=== PATIENT | male | born 1950 | race Caucasian/White ===

== ENCOUNTER 2018-03-30 12:01 | Emergency (ER) | payer OTHER, SELFPAY ==
[2018-03-30 12:03] VITALS: BP 191/106; PULSE 105; RESP 16; TEMP 36.9; O2SAT 99; BMI 34.4
[2018-03-30 12:12] VITALS: O2SAT 97
--- NOTE | 2018-03-30 12:44 | CT_ITS ---
STUDY: CT BRAIN WITHOUT CONTRAST REASON FOR EXAM: Male, 67 years old. History of fall with laceration to the posterior aspect of the skull. RADIATION DOSAGE (If Supplied By Facility): CTDIvol = ( 60.81 ) mGy, DLP = ( 1021.47 ) mGycm TECHNIQUE: Transaxial CT imaging of the brain was performed without administration of intravenous contrast material. Individualized dose optimization techniques were used for this CT. COMPARISON: None. FINDINGS: There is evidence of a scalp hematoma overlying the posterior parietal and occipital bones. There is a 6.8 mm x 8.6 mm calcified osteoma in the mid frontal bone. There is mild cerebral atrophy with widening of the extra-axial spaces and ventricular dilatation. There are areas of decreased attenuation within the white matter tracts of the supratentorial brain, consistent with microvascular disease changes. Normal basal ganglia and thalami. Normal brainstem. Normal cerebellum. There is no intracranial hemorrhage. There are no findings of an acute ischemic infarction. Atherosclerotic calcification of the cavernous portions of the internal carotid arteries bilaterally. Partial opacification of the right mastoid air cells. CT/Brain/Head without Contrast IMPRESSION: Chronic involutional changes of the brain. Skull hematoma overlying the posterior occipital parietal bones. Electronically Signed: Fernando Vasquez MD at 13:39 EST , Service support ,
--- NOTE | 2018-03-30 13:51 | ED.VISSUMM ---
- ER Visit Summary Date of Service: 03/30/18 Chief Complaint: Head injury History of Present Illness: The patient is a 67 M who states that earlier today slipped and fell on the ice striking the back of his head. This was work-related. No loss of consciousness. He is not on any blood thinners. He notes laceration. Unsure last tetanus. Physical Examination: Afebrile vital signs are stable Gen: Well-nourished well-developed Head: Normocephalic there is a 6 cm irregular laceration over the occiput. Parts of it are well aligned other parts are gaping. No active bleeding. Eyes: Perrl EOMI ENT: TMs clear no rhinorrhea moist mucous membranes Neck: Supple no lymphadenopathy no JVD nontender CVS: Regular rate rhythm no murmurs normal S1-S2 Respiratory: No distress clear to auscultation bilaterally chest nontender Abdomen: Soft nontender nondistended normal bowel sounds no masses Back: Nontender Extremity: Nontender no edema Skin: Normal color no rash Neuro: alert orientated ?3 CN II-XII intact normal strength sensation reflexes gait cerebellar GCS of 15 Psych: Normal affect normal mood Test Results: CT of the brain was negative for intracranial hemorrhage or skull fracture. Emergency Department Course and Treatment: Tetanus is updated with Adacel. Wound was locally anesthetized using 1% lidocaine with epinephrine once adequate anesthesia was achieved wound was washed with Shur-Clens and explored. It was closed using 7 4?0 simple interrupted Ethilon sutures. Wound care discussed with patient. Sutures will need to be removed in 5-7 days Impression: 1. 6 cm scalp laceration with repair 2. Closed head injury This note was generated with [employer] dictation software. It may contain incorrect words, spelling, and punctuation that were not noted in review of the chart prior to signing ED Disposition - Plan for ED Patient: Disposition: Home or Assisted Living Chief Complaint: Fall Instructions: ED Head Injury Closed, ED Laceration Scalp Sutr Stap Ch Referrals: [facility] [GROUP OF PHYSICIANS] - 7 Days for suture removal
--- NOTE | 2018-03-30 13:54 | ED.DCSUM_ITS ---
- ER Visit Summary Date of Service: 03/30/18 Chief Complaint: Head injury History of Present Illness: The patient is a 67 M who states that earlier today slipped and fell on the ice striking the back of his head. This was work- related. No loss of consciousness. He is not on any blood thinners. He notes laceration. Unsure last tetanus. Physical Examination: Afebrile vital signs are stable Gen: Well-nourished well-developed Head: Normocephalic there is a 6 cm irregular laceration over the occiput. Parts of it are well aligned other parts are gaping. No active bleeding. Eyes: Perrl EOMI ENT: TMs clear no rhinorrhea moist mucous membranes Neck: Supple no lymphadenopathy no JVD nontender CVS: Regular rate rhythm no murmurs normal S1-S2 Respiratory: No distress clear to auscultation bilaterally chest nontender Abdomen: Soft nontender nondistended normal bowel sounds no masses Back: Nontender Extremity: Nontender no edema Skin: Normal color no rash Neuro: alert orientated ?3 CN II-XII intact normal strength sensation reflexes gait cerebellar GCS of 15 Psych: Normal affect normal mood Test Results: CT of the brain was negative for intracranial hemorrhage or skull fracture. Emergency Department Course and Treatment: Tetanus is updated with Adacel. Wound was locally anesthetized using 1% lidocaine with epinephrine once adequate anesthesia was achieved wound was washed with Shur-Clens and explored. It was closed using 7 4?0 simple interrupted Ethilon sutures. Wound care discussed with patient. Sutures will need to be removed in 5-7 days Impression: 1. 6 cm scalp laceration with repair 2. Closed head injury This note was generated with [employer] dictation software. It may contain incorrect words, spelling, and punctuation that were not noted in review of the chart felipe or to signing ED Disposition - Plan for ED Patient: Disposition: Home or Assisted Living Chief Complaint: Fall Instructions: ED Head Injury Closed, ED Laceration Scalp Sutr Stap Ch Referrals: [facility] [GROUP OF PHYSICIANS] - 7 Days for suture removal
[2018-03-30 14:06] VITALS: BP 172/97; PULSE 100; RESP 18; O2SAT 95
== END 2018-03-30 14:10 | disposition home or self-care (01) ==
PROVIDERS: Emergency Provider Emergency Medicine; Family Provider Family Medicine; PCP Family Medicine
DX: S01.01XA Laceration without foreign body of scalp, initial encounter (principal); W00.0XXA Fall on same level due to ice and snow, initial encounter; Y93.9 Activity, unspecified; Y92.9 Unspecified place or not applicable; K21.9 Gastro-esophageal reflux disease without esophagitis; E11.9 Type 2 diabetes mellitus without complications; I10 Essential (primary) hypertension; E78.00 Pure hypercholesterolemia, unspecified; Z79.82 Long term (current) use of aspirin; Z79.84 Long term (current) use of oral hypoglycemic drugs; Z79.899 Other long term (current) drug therapy
CPT/HCPCS: 12002; 70450; 90715; 99285

== ENCOUNTER → 2018-05-10 10:30 | Outpatient (CLI) | payer MEDICARE, SELFPAY ==
[2018-05-06 11:26] VITALS: BMI 34.5
--- NOTE | 2018-05-10 10:33 | ECHOD_ITS ---
Reason For Study: Abnormal EKG Procedure This was a 2D Doppler, Color Flow transthoracic echocardiogram. Exam performed in department. Left Ventricle Moderate concentric left ventricular hypertrophy. The estimated ejection fraction is 65 %. Stage 1 diastolic dysfunction. Septal motion consistent with IVCD. No regional wall motion abnormalities noted. Right Ventricle Normal size and thickness. Normal systolic function. Atria The left atrium is mildly enlarged. Normal right atrium. Normal atrial septum. Mitral Valve The mitral valve is structurally normal. No prolapse or stenosis seen. Tricuspid Valve Normal tricuspid valve. Mild (1+) tricuspid valve insufficiency. Right ventricular systolic pressure estimated to be 26 mmHg. Aortic Valve Trisinus/trileaflet aortic valve. Mild focal aortic valve thickening. There is no aortic stenosis. Pulmonic Valve The pulmonic valve is not well visualized. Great Vessels Normal aortic root. Normal arch. Normal inferior vena cava. Inferior vena cava collapse with sniff. Pericardium/Pleural No pericardial effusion. MMode/2D Measurements & Calculations LVIDd: 4.5 cm IVSd: 1.7 cm Ao root diam: 3.7 cm LVIDs: 2.8 cm LVPWd: 1.4 cm RVDd: 3.3 cm FS: 36.6 % LAV(MOD-bp): 68.4 ml LVAd ap4: 30.3 cm2 SV(MOD-sp4): 56.5 ml LAV(MOD-bp) Indexed: 30.6 ml/m2 EDV(MOD-sp4): 92.3 ml LAV(MOD-sp2): 70.3 ml EDV(sp4-el): 95.6 ml LAV(MOD-sp4): 63.7 ml LVAs ap4: 17.2 cm2 ESV(MOD-sp4): 35.8 ml ESV(sp4-el): 36.5 ml EF(MOD-sp4): 61.2 % EF(sp4-el): 61.8 % SV(sp4-el): 59.1 ml LA A4 area: 22.2 cm2 LA dimension(2D): 4.2 cm RA A4 area: 13.4 cm2 Doppler Measurements & Calculations MV E max nikhil: 79.9 cm/sec Lat Peak E' Nikhil: 9.3 cm/sec Med Peak E' Nikhil: 7.0 cm/sec MV A max nikhil: 94.4 cm/sec E/E' lat: 8.6 E/E' med: 11.4 MV E/A: 0.85 Ao V2 max: 177.2 cm/sec LV V1 max: 120.3 cm/sec PA V2 max: 112.5 cm/sec Ao max P.6 mmHg LV V1 max P.8 mmHg Ao V2 mean: 130.3 cm/sec Ao mean P.4 mmHg Ao V2 VTI: 36.7 cm TR max nikhil: 229.2 cm/sec TR max P.0 mmHg Interpretation Summary Moderate concentric left ventricular hypertrophy. The estimated ejection fraction is 65 %. Stage 1 diastolic dysfunction. The left atrium is mildly enlarged. Mild (1+) tricuspid valve insufficiency. Right ventricular systolic pressure estimated to be 26 mmHg. There is no comparison study available. Ordering Physician: Az Whitaker Referring Physician: Tre Pardo Performed By: Usha Macias, BASIM, RVT
== END ==
PROVIDERS: Family Provider Family Medicine; PCP Family Medicine; Referring Provider Internal Medicine Cardiovascular Disease; Visit Provider Internal Medicine Cardiovascular Disease
DX: Z01.810 Encounter for preprocedural cardiovascular examination (principal); R94.31 Abnormal electrocardiogram [ECG] [EKG]; I45.2 Bifascicular block; I51.7 Cardiomegaly
CPT/HCPCS: 93306

== ENCOUNTER → 2018-05-11 08:54 | Outpatient (CLI) | payer MEDICARE, SELFPAY ==
[2018-05-06 11:26] VITALS: BMI 34.5
--- NOTE | 2018-05-11 08:56 | STE_ITS ---
Reason For Study: PREOPERATIVE Stress Results Protocol: Willie Protocol Maximum Predicted HR: 152 bpm Target HR: 129 bpm % Maximum Predicted HR: 89 % DurationHeart Rate Stage (mm:ss) (bpm) BP Comment BASELINE 83 148/78 STAGE 1 3:00 115 188/80SL SOB STAGE 2 3:00 136 230/90INCREASED SOB RECOVERY 83 158/88 Stress Duration: 6:00 mm:ss Maximum Stress HR: 136 bpm Baseline Echocardiogram Findings The estimated ejection fraction is 65 %. Stress Echo Wall motion Data Resting WM Intermediate WM Stress WM Resting Wall Motion Wall Motion Stress No regional wall motion No regional wall motion abnormalities noted. abnormalities noted. EKG Data The baseline ECG displays normal sinus rhythm. LBBB. The patient exercised according to the regular Willie protocol for a total duration of 6:01. The maximum heart rate attained was 139 beats per minute. This was 91% of maximum predicted heart rate. The patient exercised into stage 3 of the Willie protocol. During stress, there were no ST or T wave changes noted to suggest ischemia. No clinical angina was noted. Interpretation Summary The estimated ejection fraction is 65 %. Normal, adequate, treadmill echocardiogram. Negative for ischemia by EKG and echocardiographic criteria. No anginal symptoms noted. Rare PVCs and PACs noted. Hypertensive blood pressure response to exercise. Decreased exercise capacity for age. Final LVEF is 75%. Test terminated due to the attainment target heart rate and dyspnea. No complications. Ordering Physician: Az Whitaker Referring Physician: Az Whitaker Performed By: Elodia Buck, BASIM, RVT
== END ==
PROVIDERS: Family Provider Family Medicine; PCP Family Medicine; Referring Provider Internal Medicine Cardiovascular Disease; Visit Provider Internal Medicine Cardiovascular Disease
DX: Z01.810 Encounter for preprocedural cardiovascular examination (principal); R94.31 Abnormal electrocardiogram [ECG] [EKG]; I49.3 Ventricular premature depolarization; I11.9 Hypertensive heart disease without heart failure; I45.2 Bifascicular block; E78.5 Hyperlipidemia, unspecified; E11.9 Type 2 diabetes mellitus without complications
CPT/HCPCS: 93017; 93350

== ENCOUNTER 2018-05-12 13:16 | Day surgery (SDC) | payer MEDICARE, SELFPAY ==
[2018-04-09 08:05] VITALS: BMI 34.4
[2018-05-05 11:21] VITALS: BP 185/94; PULSE 97; RESP 16; TEMP 36.8; O2SAT 96; BMI 34.4
--- NOTE | 2018-05-05 11:38 | SDCEKG_ITS ---
Test Reason : Blood Pressure : / mmHG Vent. Rate : 090 BPM Atrial Rate : 090 BPM P-R Int : 196 ms QRS Dur : 160 ms QT Int : 406 ms P-R-T Axes : 023 -64 021 degrees QTc Int : 496 ms Sinus rhythm with occasional Premature ventricular complexes Right bundle branch block Left anterior fascicular block Bifascicular block Left ventricular hypertrophy with QRS widening Cannot rule out Septal infarct , age undetermined Abnormal ECG Confirmed by GRACIE RANGEL, ADRIAN ([id number]), assistant film editor KARUNA WOODALL ([id number]) on 05/11/2018 9:47:26 AM Referred By: Festus Escamilla Confirmed By:ADRIAN BOWMAN MD
[2018-05-05 12:22] LABS: Anion Gap 9 (5-15); BUN 22 mg/dL (7-18); BUN/Creat Ratio 24.9 RATIO (10-20); Calcium,Total 9.2 mg/dL (8.5-10.1); Chloride 99 mmol/L (98-107); Creatinine, Serum 0.88 mg/dL (0.70-1.30); EST Glomerular Filtration Rate 91 mL/min (>60); Est Glom Filt Rate - Afr Amer 110 mL/min (>60); Estimated Creatinine Clearance 82.95 ml/min; Glucose 184 mg/dL (74-106); Potassium 3.5 mmol/L (3.5-5.1); Sodium Level 137 mmol/L (136-145)
[2018-05-05 12:56] LABS: Hemoglobin A1c 7.2 % (4.2-6.3)
[2018-05-06 11:26] VITALS: BMI 34.5
--- NOTE | 2018-05-11 17:15 | PCM.HP.BLA ---
History and Physical Date of Admission: 05/12/18 Patient returns, 67-year-old male significant voiding problems has a very high AUA symptom score of 22 in prior visits we talked about several management options and he is interested in the Urolift procedure but today were to do an ultrasound of his prostate to see if is a candidate. ALLERGIES: Accupril Avery Hydralazine Lisinopril Metoprolol Norvasc MEDICATIONS: Cialis 20 mg tablet 1 tablet PO Daily use as directed. Cialis 20 mg tablet Daily Multivitamin Flomax 0.4 mg capsule 1 capsule PO Q HS Aspirin Hydroxyzine Hcl 10 mg tablet Indapamide Losartan Potassium Metformin Hcl Rosuvastatin Calcium [place] Sildenafil 20 mg tablet 5 tablet PO Daily PRN Tamsulosin Hcl 0.4 mg capsule Vitamin B-12 Notes: Patient started new medication for diabetes, rx'ed by Dr. Pardo thinks its pioglitazone but not completely sure. PSH: None PSH Notes: Patient had cyst removed from liver NON- PSH: Appendectomy Carpal Tunnel Surgery Colonoscopy - about 05/31/2017 Liver Surgery (Unspecified) Patient not documented to have received pneumococcal vaccination PMH: Benign prostatic hyperplasia with lower urinary tract symptoms - 01/11/2018, - 07/01/2016, - 2014 Elevated prostate specific antigen [PSA] - 01/11/2018, - 2014, - 2013, - 2013 Nodular prostate without lower urinary tract symptoms - 2013, - 2013, - 2012 Other male erectile dysfunction - 2013 Hematospermia - 2013, - 2012 Male erectile dysfunction, unspecified - 2013, - 2012 NON- PMH: Essential (primary) hypertension Type 2 diabetes mellitus without complications Immunizations: None FAMILY HISTORY: Diabetes - Runs in Family Heart Attack - Father Heart Disease - Mother Prostate Cancer - Uncle SOCIAL HISTORY: Marital Status: Preferred Language: [place] Islander; Ethnicity: Not Or ; Race: White Current Smoking Status: Patient has never smoked. Tobacco Use Assessment Completed: Used Smokeless in last 30 days? Smoking cessation counseling was provided. Does not use smokeless tobacco. Light Drinker. Does not use drugs. Drinks 2 caffeinated drinks per day. Has not had a blood transfusion. 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 REVIEW OF SYSTEMS: Constitutional: Patient denies fever, chills, weight loss, and weight gain. Genitourinary: Patient reports frequent urination, urinary retention, get up at night to void, and leakage of urine. Patient denies painful urination, blood in the urine, frequent uti's, history of stones, difficulty starting stream, weak stream/scanty, and bedwetting. Notes: Updated from previous visit 07/09/2017 with review from patient as noted above. VITAL SIGNS: 04/19/2018 10:29 AM Weight 225 lb / 102.06 kg Height 70 in / 177.8 cm BP 138/76 mmHg BMI 32.3 kg/m? - BMI Counseling was provided. PHYSICAL EXAMINATION: Anus and Perineum: No hemorrhoids. No anal stenosis. No rectal fissure, no anal fissure. No edema, no dimple, no perineal tenderness, no anal tenderness. Scrotum: No lesions. No edema. No cysts. No warts. Epididymides: Right: no spermatocele, no masses, no cysts, no tenderness, no induration, no enlargement. Left: no spermatocele, no masses, no cysts, no tenderness, no induration, no enlargement. Testes: No tenderness, no swelling, no enlargement left testes. No tenderness, no swelling, no enlargement right testes. Normal location left testes. Normal location right testes. No mass, no cyst, no varicocele, no hydrocele left testes. No mass, no cyst, no varicocele, no hydrocele right testes. Urethral Meatus: Normal size. No lesion, no wart, no discharge, no polyp. Normal location. Penis: Circumcised, no warts, no cracks. No dorsal Peyronie's plaques, no left corporal Peyronie's plaques, no right corporal Peyronie's plaques, no scarring, no warts. No balanitis, no meatal stenosis. Prostate: Prostate about 80 grams. Left lobe normal consistency, right lobe normal consistency. Symmetrical lobes. No prostate nodule. Left lobe no tenderness, right lobe no tenderness. Seminal Vesicles: Nonpalpable. Sphincter Tone: Normal sphincter. No rectal tenderness. No rectal mass. MULTI-SYSTEM PHYSICAL EXAMINATION: Constitutional: Well-nourished. No physical deformities. Normally developed. Good grooming. Neck: Neck symmetrical, not swollen. Normal tracheal position. Respiratory: No labored breathing, no use of accessory muscles. Cardiovascular: Normal temperature, normal extremity pulses, no swelling, no varicosities. Lymphatic: No enlargement of neck, axillae, groin. Skin: No paleness, no jaundice, no cyanosis. No lesion, no ulcer, no rash. Neurologic / Psychiatric: Oriented to time, oriented to place, oriented to person. No depression, no anxiety, no agitation. Gastrointestinal: No mass, no tenderness, no rigidity, non obese abdomen. Eyes: Normal conjunctivae. Normal eyelids. Ears, Nose, Mouth, and Throat: Left ear no scars, no lesions, no masses. Right ear no scars, no lesions, no masses. Nose no scars, no lesions, no masses. Normal hearing. Normal lips. Musculoskeletal: Normal gait and station of head and neck. PAST DATA REVIEWED: Source Of History: Patient 12/25/17 07/11/17 07/04/16 06/17/14 08/13/13 02/22/13 11/16/04 PSA Total PSA 4.8 5.7 4.8 mg/dl 5.04 5.80 6.40 3.39 PROCEDURES: TRUS W/O Biopsy - 44870 The patient understands the material risks, benefits, and alternatives, and reasoning behind the necessity of his prostate volume measurement. The patient was instructed on the use of pre-procedural Fleet enema. There was no preoperative antibiotic. Procedure performed in the lateral decubitus position, using the for real time ultrasonography. Careful ultrasound imaging was carried out in both axial and sagittal views to assess for any intraprostatic, or periprostatic abnormalities. Transitional zone margins were easily visualized as were seminal vesticles bilaterally. Prostatic lengths were as follows: transverse seminal vesicles bilaterally. Prostatic lengths were as follows: 95gm prostate Urinalysis - 57331 Dipstick Dipstick Cont'd Specimen: Voided Blood: Neg Appearance: Clear pH: 5.0 Color: Yellow Protein: Neg Glucose: 100 Urobilinogen: Neg Bilirubin: Neg Nitrites: Neg Ketones: Neg Leukocyte Esterase: Neg ASSESSMENT: ICD-10 Details 1 : Benign prostatic hyperplasia with lower urinary tract symptoms - N40.1 2 Nocturia - R35.1 3 Elevated prostate specific antigen [PSA] - R97.20 PLAN: Schedule Procedure: Unspecified Date - Cystoscopy TURP - 53515 Document Letter(s): Created for Patient: Clinical Summary The risks, benefits, and some of the possible complications of the proposed procedure were discussed with the patient at length and in detail including the possibility of postoperative urinary urgency, frequency, incontinence, dysuria, hematuria, retrograde ejaculation, urinary retention, bladder neck contracture, and urethral stricture, as well as the need for a bladder biopsy, retrograde pyelograms, resection of a bladder lesion, dilation of the urethra, postoperative catheterization, placement of a ureteral stent, discovering asymptomatic prostate cancer and others. The possible need for postoperative treatments including further surgical procedures was discussed with the patient. The general risks of the operative procedure and the perioperative period were discussed with the patient at length and in detail including swelling, pain, nausea, vomiting, fever, chills, infection, wound infection, sepsis, renal failure, internal or external bleeding, intraoperative bowel, organ or vascular injuries, postoperative formation of scar tissue, the need for blood transfusions, deep venous thrombosis or blood clots, pulmonary embolus, pneumonia, respiratory failure, heart attack, stroke, he and others. All of the patient's questions were answered and he voiced an understanding of these risks, benefits and possible complications. The patient gave fully informed consent to proceed with the procedure. Notes: 67-year-old male significant voiding problems very high AUA symptom score significant BPH obstruction on ultrasound prostate had a 95 g prostate. Very large bilateral hypertrophy no medium lobe so because of this I recommended surgery of the TURP since his prostate too large for minimally invasive office-based procedures which will not be effective. He does have how the surgery done, will have blood in the urine, frequency urgency and also retrograde ejaculation afterwards we discussed recovery after the surgery. My office call him to get him set up for TURP at the hospital.
[2018-05-12] VITALS (7 sets, daily range): BP systolic 146–191; BP diastolic 74–93; PULSE 80–99; RESP 16–18; TEMP 36.3–37.3; O2SAT 94–99; BMI 33.7
[2018-05-12 14:01] LABS: Bedside Glucose 156 mg/dL (70-110)
[2018-05-12] MEDS: Cefazolin 2 GM in 0.9% Normal Saline 100 ML IV (15:28)
--- NOTE | 2018-05-12 15:32 | PCM.DC.URO ---
Discharge Diet: Light diet - advance as tolerated Discharge Activity: Return to Normal Activity, May not drive while taking narcotic pain medications. Call your doctor if your incision/area has: Continuous Slow Oozing, Sudden Increased Bleeding, Increased Pain/ Swelling, Increased Redness, Foul Smelling Discharge, Swelling at the incision site Suture Line Care: Avoid Pulling/Pushing, Avoid Pinching/Bending Instructions: Transurethral Resection of the Prostate (TURP): Home Recovery Allergies/Adverse Reactions: Allergies metoprolol Allergy (Severe, Verified 05/12/18 13:32) Severe Hives amlodipine Adverse Reaction (Severe, Verified 05/12/18 13:32) Dizziness lisinopril Adverse Reaction (Severe, Verified 05/12/18 13:32) Dizziness olmesartan [From Avery] Adverse Reaction (Unknown, Verified 05/12/18 13:32) unknown hydralazine Adverse Reaction (Verified 05/12/18 13:32) lupus like symptom, systemic edema and joint pain quinapril HCl [From Accupril] Adverse Reaction (Verified 05/12/18 13:32) disorient, dizzy Medications to take at Discharge Aspirin [Aspirin, Baby] 81 mg PO DAILY@0800 10/19/14 Losartan Potassium [Cozaar] 100 mg PO DAILY 10/19/14 Metformin HCl [Glucophage] 1,000 mg PO BIDCM 10/19/14 [place]-3 Fatty Acids [Fish Oil] 1,000 mg PO DAILY 10/19/14 Tamsulosin HCl [Flomax] 0.4 mg PO QHS 10/20/14 Cyanocobalamin [Vitamin B12] 1,000 mcg PO DAILY@0800 03/23/17 Magnesium 250 mg PO DAILY 03/23/17 Rosuvastatin Calcium [Crestor] 20 mg PO DAILY 03/23/17 Saw [place] 500 mg PO DAILY 03/23/17 hydrOXYzine tablet [Atarax] 10 mg PO BID 03/23/17 Cinnamon Bark [Cinnamon] 500 mg PO BID 05/05/18 Multivitamin [Daily Multiple Vitamin] 1 ea PO DAILY 05/05/18 Pioglitazone [Actos] 30 mg PO DAILY 05/05/18 chlorthalidone 25 mg tablet 25 mg PO DAILY 05/06/18 sildenafil (antihypertensive) 20 mg tablet 20 mg PO .COMPLEX PRN 05/06/18 Acetaminophen [Tylenol Extra Strength] 500 mg PO Q4H PRN PRN #20 tablet 05/12/18 Ciprofloxacin [Cipro] 500 mg PO BID #14 tablet 05/12/18 Ibuprofen 600 mg PO Q6H PRN PRN #20 tablet 05/12/18 The following prescriptions were given: Acetaminophen [Tylenol Extra Strength] 500 mg PO Q4H PRN PRN #20 tablet PRN Reason: Pain Ibuprofen 600 mg PO Q6H PRN PRN #20 tablet PRN Reason: Pain Ciprofloxacin [Cipro] 500 mg PO BID #14 tablet Primary Care Physician: Tre Pardo MD [Primary Care Provider] - Test Results: Test results from this visit will be discussed in further detail at your follow-up appointment, if applicable. Please Follow Up With: Festus Escamilla MD When: in 2 weeks, please call to make an appointment. Proposed Discharge Date: 05/13/18
--- NOTE | 2018-05-12 15:50 | PROS_PTH ---
PATIENT: KELLEY GOLDMAN LOC: [facility] [place] U#:[id number] AGE/SX: 67/M ROOM: RE05/12/[address]: Dr. Festus Escamilla MD : [id number] BED: DIS: 05/13/2018 SPEC #: [id number] RECD: 05/13/18 07:22 STATUS: YOLY RAS #: [id number] BRIDGETTE: 05/12/18 15:[address]: Festus Escamilla DEPT: SURGICAL PATHOLOGY RECD BY: Jonah Mancuso ENTERED: 05/13/18 11:17 SP TYPE: TURP OTHR DR: Dr. Tre Pardo MD Tissues: Prostate, NOS Procedures: Surgery Specimen Level IV HEADER OPERATION: Transurethral resection of prostate with Olympus PRE-OP DIAGNOSIS: Benign prostatic hyperplasia with lower urinary tract symptoms; nocturia TISSUE SUBMITTED: Prostate tissue MICROSCOPIC DIAGNOSIS Prostate, transurethral resection: Benign nodular hyperplasia, glandular and stromal types. Minimal chronic inflammation. AM:[place] 05/14/18 MICROSCOPIC DESCRIPTION Slides are reviewed. GROSS DESCRIPTION Received is one container labeled with the patient's name and designated prostate tissue. The specimen consists of multiple irregular fragments of pink-martinez, rubbery, soft tissue that in aggregate weigh 25.9 gm and measure in aggregate 6.5 x 6.5 x 1.8 cm. Site Acquisition Manager portions are submitted in 12 cassettes. / AM:k[place] 05/14/18 TC:3 CPT: 34639
--- NOTE | 2018-05-12 16:50 | PCM.OPRPT ---
Report of Operation Date of Procedure: 05/12/18 Pre-Operative Diagnosis: BPH with obstruction Post-Operative Diagnosis: The same Surgery/Procedure Performed:: Transurethral resection of the prostate Description of Surgical Findings:: 67-year-old male with a history of enlarged prostate he has significant voiding symptoms difficulty emptying his bladder. He was found to have bilateral hypertrophy and obstruction of the prostate. We talked about the management options and we will proceed with a transurethral resection of the prostate. 67-year-old male taken back to the operating room at the smooth induction of general anesthesia he was placed supine on the table in the dorsolithotomy position, penis and testicles are prepped and draped in usual sterile fashion, went into the bladder with a 26 [place] continuous flow resectoscope. The entire length of the urethra was normal mid the mid urethra is normal the urethra bulbar urethra is normal sphincter was intact the verumontanum was identified he had bilateral hypertrophy, he is also had a very large median lobe. He had a probably a 50 g prostate. I then proceeded with resection resected the median lobe down to the bladder neck resected the right lobe of the prostate which was quite large and resect the left lobe of the prostate carefully resected the apical tissue Ellik out all the chips obtain hemostasis and then at the end had a nice wide open channel from the verumontanum all the way into the bladder neck wide open bladder neck sphincter looked intact when I pulled back down the sphincter I then left the catheter in place on continuous bladder irrigation patient anesthetic is currently being reversed plan is to remove the catheter tomorrow if the urine is clear. Type of Anesthesia:: General Drains: 22fr 3 way - Admit VTE Documentation VTE Present on Admission: No
[2018-05-12 17:40] LABS: Bedside Glucose 141 mg/dL (70-110)
[2018-05-12] MEDS: 0.9% Normal Saline 1,000 ML 75 ML IV (18:58)
[2018-05-12] MEDS: Docusate Sodium 100 MG Capsule PO (21:28)
[2018-05-12] MEDS: Ciprofloxacin 400 MG/200 ML BAG 200 MG IV (21:28)
[2018-05-12] MEDS: Tamsulosin HCl 0.4 MG Capsule PO (21:29)
[2018-05-12] MEDS: Rosuvastatin 20 MG Tablet PO (21:29)
[2018-05-12 22:56] LABS: Bedside Glucose 272 mg/dL (70-110)
[2018-05-13 02:15] VITALS: BP 162/81; PULSE 91; RESP 18; TEMP 37; O2SAT 98
[2018-05-13 07:15] LABS: Hematocrit 37.6 % (40-54); Hemoglobin 12.6 g/dl (13.0-16.5); Mean Corp Hgb Conc 33.5 g/gl (32-36); Mean Corpuscular Hgb 30.7 pg (27.0-32.0); Mean Corpuscular Volume 91.7 fL (80-94); Platelet Count 162 K/mm3 (150-450); RBC Distribution Width CV 13.6 % (11.6-14.6); RBC Distribution Width SD 44.7 fl (35.1-43.9); White Blood Count 10.6 K/mm3 (4.4-11.0)
[2018-05-13 07:16] LABS: Scan Indicated on CBC? Y/N NO
[2018-05-13 07:46] LABS: Anion Gap 8 (5-15); BUN 14 mg/dL (7-18); BUN/Creat Ratio 16.2 RATIO (10-20); Chloride 98 mmol/L (98-107); Creatinine, Serum 0.86 mg/dL (0.70-1.30); EST Glomerular Filtration Rate 94 mL/min (>60); Est Glom Filt Rate - Afr Amer 113 mL/min (>60); Estimated Creatinine Clearance 84.88 ml/min; Glucose 177 mg/dL (74-106); Potassium 3.4 mmol/L (3.5-5.1); Sodium Level 136 mmol/L (136-145)
[2018-05-13] MEDS: Pioglitazone Hydrochloride 30 MG Tablet PO (07:51)
[2018-05-13] MEDS: Losartan Potassium 100 MG Tablet PO (07:51)
[2018-05-13] MEDS: metFORMIN HCl 1,000 MG Tablet 1000 MG PO (07:51)
[2018-05-13] MEDS: Chlorthalidone 50 MG Tablet 25 MG PO (07:52)
[2018-05-13 07:54] VITALS: BP 182/91; PULSE 89; RESP 18; TEMP 37.1; O2SAT 98
[2018-05-13 08:05] LABS: Bedside Glucose 179 mg/dL (70-110)
[2018-05-13] MEDS: 0.9% Normal Saline 1,000 ML 75 ML IV (10:07)
[2018-05-13] MEDS: Ciprofloxacin 400 MG/200 ML BAG 200 MG IV (10:08)
[2018-05-13] MEDS: Pantoprazole Sodium 40 MG Tablet PO (10:10)
[2018-05-13] MEDS: Docusate Sodium 100 MG Capsule PO (10:10)
[2018-05-13 12:00] LABS: Bedside Glucose 279 mg/dL (70-110)
[2018-05-13 13:01] VITALS: BP 182/84; PULSE 81; RESP 18; TEMP 37.2; O2SAT 96
[2018-05-13 13:07] VITALS: O2SAT 96
== END 2018-05-13 13:13 | disposition home or self-care (01) ==
LOC: SDC 13:19 → AC 13:20 → MS2 16:06
PROVIDERS: Anesthesiology; Family Provider Family Medicine; PCP Family Medicine; Referring Provider Urology; Visit Provider Urology
PROC: (CPT 52601; principal; 2018-05-12 15:40)
DX: N40.1 Benign prostatic hyperplasia with lower urinary tract symptoms (principal); N13.8 Other obstructive and reflux uropathy; E11.9 Type 2 diabetes mellitus without complications; Z79.899 Other long term (current) drug therapy; Z79.82 Long term (current) use of aspirin; Z79.84 Long term (current) use of oral hypoglycemic drugs; I45.2 Bifascicular block; I10 Essential (primary) hypertension
CPT/HCPCS: 00914; 52601; 36415; 80048; 82962; 83036; 85027; 88305; 93005; J7030; J7120; J0744; J2405

== ENCOUNTER 2018-05-14 15:40 | Emergency (ER) | payer MEDICARE, SELFPAY ==
[2018-05-12 18:22] VITALS: BMI 33.7
[2018-05-14 15:40] VITALS: BP 202/116; PULSE 109; RESP 18; TEMP 37.2; O2SAT 96; BMI 33.7
--- NOTE | 2018-05-14 15:54 | ED.VIS.GEN ---
History of Present Illness Chief Complaint: Complaint Detail of Chief Complaint: Unable to urinate Informant: Patient, Significant Other Onset: Today Context: Sudden Onset Timing: Continuous Quality: Dribbles bright red blood Location: system Current Severity: Severe Maximum Severity: Severe Worsened by: Suspect clots Relieved by: Nothing Associated Symptoms: Inability to urinate Narrative: Patient is an elderly male who had a TURP performed on Thursday. He was able to void and was discharged yesterday, May 13. He presents now because he is unable to void other than small dribbles of bright red blood. He complains of a fullness in the suprapubic region. He has no other complaints and is on no anticoagulant. He states he taking a baby aspirin a day. - Past Medical History (1) Premature ventricular contractions Status: Acute (2) BPH (benign prostatic hyperplasia) Status: Chronic (3) Diabetes mellitus type II, controlled Status: Chronic (4) Hyperlipidemia Status: Chronic (5) Hypertension Status: Chronic Past Medical History - Allergies and Home Meds Allergies/Adverse Reactions: Allergies metoprolol Allergy (Severe, Verified 05/14/18 15:42) Severe Hives amlodipine Adverse Reaction (Severe, Verified 05/14/18 15:42) Dizziness lisinopril Adverse Reaction (Severe, Verified 05/14/18 15:42) Dizziness olmesartan [From Avery] Adverse Reaction (Unknown, Verified 05/14/18 15:42) unknown hydralazine Adverse Reaction (Verified 05/14/18 15:42) lupus like symptom, systemic edema and joint pain quinapril HCl [From Accupril] Adverse Reaction (Verified 05/14/18 15:42) disorient, dizzy Primary Care Physician: Tre Pardo MD [Primary Care Provider] - Prior records reviewed: Yes - Recent surgery by urology May 12 Surgical History: TURP Lives: Spouse/ Significant Other - . Smoking Status: Never smoker Alcohol: None - Family History Maternal Family History: Family History (Last Reviewed 05/06/18 @ 11:27 by Diane Rowe) Sister Colon cancer Hypertension Father CAD (coronary artery disease) Myocardial infarction Mother CAD (coronary artery disease) Myocardial infarction Uncle Prostate cancer Family History: Reports: No pertinent history Review of Systems General: Denies: Chills, Fever, Sweats Cardiovascular: Denies: Chest pain, Palpitations, Heart racing Respiratory: Denies: Dyspnea, Cough, Dyspnea on exertion, Orthopnea, Paroxysmal nocturnal dyspnea Gastrointestinal: Denies: Abdominal pain, Nausea, Vomiting, Diarrhea, Melena, Hematochezia Genitourinary: Reports: Hematuria, - - He does report urgency since he is unable to void.. Denies: Dysuria, Frequency Musculoskeletal: Denies: Back pain, Extremity Pain Skin: Denies: Rash Hematologic: Denies: Easy bruising, Easy bleeding Allergy: Denies: Uticaria Physical Exam Vital Signs/Narrative: Vital Signs Temp Pulse Resp BP Pulse Ox 05/14/18 15:40 99 F 109 H 18 202/116 H 96 Inital Vital Signs reviewed: Yes - Blood pressure is elevated and may be elevated secondary to discomfort, not General: Well nourished, Well developed, Obese, No Acute Distress Head: Normocephalic, Atraumatic Eyes: Perrl, EOMI. Negative for: Pale conjunctiva, Scleral icterus ENT: Moist mucous membranes, No rhinorrhea Neck: Supple, Nontender, No JVD Cardiovascular: Regular rate, Regular rhythm, No murmurs, Normal S1, Normal S2 Respiratory: No distress, CTA bilaterally, Chest nontender Abdomen: Soft, Nontender, Nondistended, Normal bowel sounds. Negative for: No masses Skin: Normal color, No rash. Negative for: Cyanosis, Diaphoresis, Jaundice, Rash Neurological: Alert, Oriented x3, Cranial nerves II-XII grossly intact, Normal Strength, Normal Sensation Psychological: Normal affect, Normal Mood, Agitated - He was agitated that he may need to be admitted. He states he was told by his urologist he would not have to stay. Patient was informed that I would contact his urologist after the appropriate intervention. Diagnostic/Tx/Re-eval Laboratory Results 05/14/18 16:06 WBC 11.5 H RBC 4.07 L Hgb 12.5 L Hct 36.7 L MCV 90.2 MCH 30.7 MCHC 34.1 RDW 13.3 RDW Differential 43.0 Plt Count 171 MPV 10.8 - Medical Decision Making Bladder scan was ordered to evaluate amount of urine in bladder. Three-way was ordered. Will need to irrigate presume patient is unable to void secondary to clot formation status post TURP. H&H was obtained to compare to preop and as baseline. Since there is no history of renal disease and this started abruptly basic metabolic panel was not obtained to assess electrolytes and renal function. Bladder scan indicated greater than 1 L. Initially bright red blood. After 3+ liters of irrigation a faint andre colored urine. The irrigation port was clamped. He was discharged with a leg bag. He was instructed to contact urologist office on Thursday for removal since he does not feel comfortable and states she would not remove it. ED Disposition - Plan for ED Patient: Disposition: Home or Assisted Living Diagnosis: Acute urinary retention, Postoperative urinary retention Instructions: ED Retention Urinary Male Referrals: Tre Pardo MD [Primary Care Provider] - Festus Escamilla MD [STAFF PHYSICIAN] - 3-5 Days
[2018-05-14 16:14] LABS: Hematocrit 36.7 % (40-54); Hemoglobin 12.5 g/dl (13.0-16.5); Mean Corp Hgb Conc 34.1 g/gl (32-36); Mean Corpuscular Hgb 30.7 pg (27.0-32.0); Mean Corpuscular Volume 90.2 fL (80-94); Mean Platelet Vol. 10.8 fl (6.2-12.0); Platelet Count 171 K/mm3 (150-450); RBC Distribution Width CV 13.3 % (11.6-14.6); Red Blood Count 4.07 M/mm3 (4.6-6.2); White Blood Count 11.5 K/mm3 (4.4-11.0)
[2018-05-14 16:15] LABS: Scan Indicated on CBC? Y/N NO
[2018-05-14 17:46] VITALS: BP 191/97; PULSE 82; RESP 16; O2SAT 98
[2018-05-14 18:21] VITALS: PULSE 88; RESP 16; O2SAT 98
== END 2018-05-14 18:24 | disposition home or self-care (01) ==
PROVIDERS: Emergency Provider Emergency Medicine; Family Provider Family Medicine; PCP Family Medicine
DX: N40.1 Benign prostatic hyperplasia with lower urinary tract symptoms (principal); R33.9 Retention of urine, unspecified; E66.9 Obesity, unspecified; E11.9 Type 2 diabetes mellitus without complications; E78.5 Hyperlipidemia, unspecified; I10 Essential (primary) hypertension
CPT/HCPCS: 85027; 99283; A4216

== ENCOUNTER → 2022-08-25 | Outpatient (CLI) | payer MEDICARE, SELFPAY ==
--- NOTE | 2022-08-25 13:39 | RAD_ITS ---
INDICATION: POST FALL 1 MONTH EXAMINATION/TECHNIQUE: X-RAY - LEFT XR Knee Complete 4 Views or More COMPARISON: None. FINDINGS: No acute fracture or malalignment. Minimal tricompartmental degenerative changes of the left knee. No joint effusion. The soft tissues are unremarkable. RAD/Knee 4 or More Views IMPRESSION: No acute radiographic abnormalities. 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 Electronically Signed: Lon Lawrence MD at 21:09 EDT ,
== END | disposition home or self-care (01) ==
PROVIDERS: PCP Family Medicine; Referring Provider Nurse Practitioner Family; Visit Provider Nurse Practitioner Family
DX: M25.562 Pain in left knee (principal)
CPT/HCPCS: 73564

== ENCOUNTER → 2022-12-11 | Outpatient (CLI) | payer MEDICARE, SELFPAY | END | disposition home or self-care (01) | LOC: PSN 11:55 | PROVIDERS: PCP Family Medicine; Referring Provider Student in an Organized Health Care Education/Training Program; Visit Provider Student in an Organized Health Care Education/Training Program | DX: Z01.810 Encounter for preprocedural cardiovascular examination (principal) | CPT/HCPCS: 93005 ==